=== PATIENT | male | born 1965 | race Caucasian/White ===

== ENCOUNTER 2019-10-24 17:26 | Inpatient (IN) | payer OTHER ==
[2019-10-24] VITALS (123 sets, daily range): BP systolic 95–119; BP diastolic 67–76; PULSE 79–103; TEMP 99.8–100.8; O2SAT 92–98
[~2019-10-24] VITALS: Ht 167.6 cm; Wt 76.2 kg
[~2019-10-24 17:26] MED LIST: IBU600 MG PO; LEVAQUIN 750MG750 M1 PO; MOBIC15 MG PO; TRICOR 48MG48 MG PO
[2019-10-24] MEDS ORDERED: PRILOTC PO (17:34)
[2019-10-24] MEDS ORDERED: ZESTRIL 10MG10 MG PO (17:34)
[2019-10-24 18:23] LABS: INR 1.1 (0.8-3.0); PROTHROMBIN TIME 13.3 SECONDS (9.7-12.8)
--- NOTE | 2019-10-24 22:35 | NUR ---
Report recieved from ARASH Lynne in PACU at 2040, patient arrived in ICU via bed at 2052. Patient was alert and oriented and had no complaints of pain. See post-op vital flowsheet. It was reported that patient received 2900ml fluids in OR, see eMAR for fluid orders at this time-wrist IV infusing well, R)IJ triple lumen central line flushes well, dressing CDI. Abdominal incisions well approximated-glue to incision at umbilicus and LLQ, dressing and ENE drain CDI and compressed at RLW. Hernandez in place and draining clear, yellow urine. Patient does continue to have temperature at 100 degrees F. Patient arrived to ICU on 2L/NC, decreased to 1L/NC at 2200. ENE drain also emptied at 2200 and recompressed. Patient talked with daughter and has cell phone at side of bed. Both and daughter's phone numbers on chart at this time. Patient tolerating ice chips, denies nausea. Pleasant and cooperative and uses call light appropriately.
[2019-10-25] VITALS (703 sets, daily range): BP systolic 109–153; BP diastolic 75–99; PULSE 79–95; TEMP 99.6–101.4; O2SAT 88–99
--- NOTE | 2019-10-25 02:30 | NUR ---
Mike Minor from the [facility] called to confirm information becuase patient's daughter and are requesting leave for the daughter. . Call back number [phone] for any updates, added information or questions.
[2019-10-25 05:48] LABS: BASO % 0.2 % (0.0-2.0); EOS # 0.1 (0.0-0.7); EOS % 0.5 % (0-4.0); GRAN # 11.5 (1.4-6.5); GRAN % 87.3 % (42.2-75.2); HEMOGLOBIN 12.9 g/dl (13.5-18.0); LYMPH # 0.6 (1.2-3.4); LYMPH % 4.5 % (20.0-51.0); MEAN CELL VOLUME 81 fl (80.0-100.0); MEAN CORPUSCULAR HEMOGLOBIN 27 pg (27.0-31.0); MEAN CORPUSCULAR HGB CONC 33 g/dl (33.0-37.0); MONO % 7.2 % (1.7-9.3); PLATELET COUNT 205 K/mm3 (130-400); RED BLOOD COUNT 4.83 M/mm3 (4.20-5.60)
[2019-10-25 05:56] LABS: INR 1.3 (0.8-3.0); PROTHROMBIN TIME 15.3 SECONDS (9.7-12.8)
[2019-10-25 06:09] LABS: ALBUMIN 3.2 gm/dL (3.5-5.0); BILIRUBIN,TOTAL 1.1 mg/dL (0.0-1.0); CALCIUM 8.5 mg/dL (8.4-10.2); CREATININE, serum 0.73 (0.66-1.25); POTASSIUM 4.1 mmol/L (3.4-5.0); TOTAL PROTEIN 5.6 gm/dL (6.4-8.2)
--- NOTE | 2019-10-25 08:00 | NUR ---
Shift assessment complete at this time. Plan of care reviewed at bedside with patient. Additional time taken to address any other needs or concerns. Pt reports mild abdominal pain at 3/10 severity near incision sites and denies need for pain intervention at this time. Vitals stable. Bed in low position, call light within reach, will continue to monitor.
--- NOTE | 2019-10-25 12:00 | NUR ---
Shift reassessment complete at this time. No changes from previous assessment noted. Vitals stable at this time. Pt denies pain or any other discomforts at this time. Bed in low position, call light within reach, will continue to monitor.
--- NOTE | 2019-10-25 13:21 | NUR ---
Patient reports that he would be returning to [place] with his Ayla . Patient shares that he using a walker and cane. Patient indicated that he has tranportation. Patient reports that he has two primary care Dr. Romo at the [facility] and Dr. King on [place] at the . Patient denies having a DPOA. Patient denies having any additional concerns prior to DC> Nothing Follows.
--- NOTE | 2019-10-25 16:00 | NUR ---
Shift reassessment complete at this time. No changes from previous assessments noted. Vitals stable at this time. Pt reports mild pain at 2-3/10 severity and declines need for intervention at this time. Bed in low position, call light within reach, will continue to monitor.
--- NOTE | 2019-10-25 18:11 | NUR ---
PT ARRIVED TO UNIT @ 1745. AOX4. STATES DULL PAIN TO RLQ ABD. DENIES N/V. STATES HAD A LARGE PASTY BM UPON ARRIVAL TO UNIT. THIS NURSE DID NOT VISUALIZE. ENE DRAIN NOTED TO MID LOWER ABD WITH SOILED DRESING. C/D/I SITES TO LEFT LATERAL AND ABOVE UMBILICUS SURGICAL SITE WITH DERMABOND. IVF CONTINUED ORDERED. CLEAR LIQ TRAY ARRIVED TO ROOM @ 1810.
--- NOTE | 2019-10-25 20:00 | NUR ---
Received report from ARASH Carlson. Pt is currently up and in the bathroom. Pt ambulated to the bathroom stand by assist. Pt stated that he would call out when he was done. Pt has his cord within reach
--- NOTE | 2019-10-25 22:25 | NUR ---
Pt called out requesting Tylenol for pain. Pt was given 2 Tylenol at this time. Pt has his call light within reach and his bed is in lowest position.
[2019-10-26 00:13] VITALS: TEMP 99.5
--- NOTE | 2019-10-26 01:24 | NUR ---
Pt currently sleeping in bed at this time. New fluids were hung at this time.
[2019-10-26 03:28] VITALS: BP 148/98; PULSE 82; TEMP 99.2
[2019-10-26 07:26] LABS: ALBUMIN 3.6 gm/dL (3.5-5.0); BILIRUBIN,TOTAL 1.2 mg/dL (0.0-1.0); CALCIUM 8.6 mg/dL (8.4-10.2); CREATININE, serum 0.74 (0.66-1.25); POTASSIUM 3.7 mmol/L (3.4-5.0); TOTAL PROTEIN 6.3 gm/dL (6.4-8.2)
[2019-10-26 07:27] LABS: BASO # 0.1 (0.0-0.2); BASO % 0.4 % (0.0-2.0); EOS # 0.1 (0.0-0.7); EOS % 0.8 % (0-4.0); GRAN # 9.7 (1.4-6.5); GRAN % 80.8 % (42.2-75.2); HEMATOCRIT 41.5 % (42.0-52.0); HEMOGLOBIN 13.6 g/dl (13.5-18.0); INR 1.1 (0.8-3.0); LYMPH # 1.1 (1.2-3.4); MEAN CELL VOLUME 81 fl (80.0-100.0); MEAN CORPUSCULAR HEMOGLOBIN 27 pg (27.0-31.0); MEAN CORPUSCULAR HGB CONC 33 g/dl (33.0-37.0); MEAN PLATELET VOLUME 10.4 fl (7.4-10.4); MONO % 8.4 % (1.7-9.3); PLATELET COUNT 227 K/mm3 (130-400); PROTHROMBIN TIME 12.6 SECONDS (9.7-12.8); RED BLOOD COUNT 5.11 M/mm3 (4.20-5.60); REDCELL DISTRIBUTION WIDTH-CV 14.6 % (11.5-14.5)
--- NOTE | 2019-10-26 07:29 | NUR ---
Reported off to ARASH Gould. Pt is currently lying in bed at this time. Pt has no complaints at this time. Pt did request water and pt pitcher was refilled at this time. Pt has his call light within reach and his bed is in lowest position.
[2019-10-26 08:22] VITALS: BP 146/97; PULSE 91; TEMP 99.1
--- NOTE | 2019-10-26 08:30 | NUR ---
Patient independent in room. He had a bowel movment this am, He is hopeful to progress diet. Reports passing flatus, denies nausea. ENE drain with minimal output. Ivf & antibioitcs as ordered.
[2019-10-26 11:39] VITALS: BP 142/96; PULSE 88; TEMP 99.9
--- NOTE | 2019-10-26 14:29 | NUR ---
Patient resting, rounded. Orders obtained from [facility]. IV to Int. Home Zestril resumed. He continues to ambulate halls independently. He is tolerating low fiber diet without nausea.
[2019-10-26 15:44] VITALS: BP 124/98; PULSE 86; TEMP 98.3
--- NOTE | 2019-10-26 16:00 | NUR ---
Patient headache improved after tyelnol. Iv antibioitcs per orders.
--- NOTE | 2019-10-26 20:30 | NUR ---
Initial shift assessment done- states would like some Tylenol,just "sore" abd area--Delfin to bulb sx with serosanguinous drainage- lap sites intact, active bowel sounds, temp 99.8-using IS, Has R/IJ TLC- good blood return- on IV antibiotics--was hoping to go home tomorrow
[2019-10-26 21:02] VITALS: BP 137/91; PULSE 86; TEMP 99.8
[2019-10-27 00:10] VITALS: BP 120/84; PULSE 76; TEMP 99.6
[2019-10-27 03:47] VITALS: BP 143/88; PULSE 85; TEMP 98.6
[2019-10-27 05:26] LABS: BASO # 0.1 (0.0-0.2); BASO % 0.4 % (0.0-2.0); EOS # 0.3 (0.0-0.7); EOS % 2.4 % (0-4.0); GRAN # 10.8 (1.4-6.5); GRAN % 77.1 % (42.2-75.2); HEMATOCRIT 42.7 % (42.0-52.0); HEMOGLOBIN 14.3 g/dl (13.5-18.0); LYMPH # 1.4 (1.2-3.4); LYMPH % 9.8 % (20.0-51.0); MEAN CELL VOLUME 82 fl (80.0-100.0); MEAN CORPUSCULAR HEMOGLOBIN 27 pg (27.0-31.0); MEAN CORPUSCULAR HGB CONC 34 g/dl (33.0-37.0); MEAN PLATELET VOLUME 10.1 fl (7.4-10.4); MONO # 1.4 (0.1-0.6); MONO % 9.7 % (1.7-9.3); PLATELET COUNT 272 K/mm3 (130-400); RED BLOOD COUNT 5.24 M/mm3 (4.20-5.60); REDCELL DISTRIBUTION WIDTH-CV 14.6 % (11.5-14.5)
[2019-10-27 05:37] LABS: ALBUMIN 3.9 gm/dL (3.5-5.0); CALCIUM 8.9 mg/dL (8.4-10.2); CREATININE, serum 0.72 (0.66-1.25); POTASSIUM 3.6 mmol/L (3.4-5.0); TOTAL PROTEIN 6.8 gm/dL (6.4-8.2)
[2019-10-27 07:38] VITALS: BP 137/95; PULSE 88; TEMP 99.2
--- NOTE | 2019-10-27 07:41 | NUR ---
Quiet night- requesting Tylenol for pain only- voiding well, highest temp tonight 99.8, on scant out of ENE during the night
--- NOTE | 2019-10-27 08:00 | NUR ---
PATIENT SITTING UP RESTING IN BED. PATIENT IS A&OX4. TACHYCARDIA NOTED, VSS. BOWEL SOUNDS ACTIVE ALL FOUR QUADRANTS. PATIENT TOLERATING DIET WITHOUT ANY COMPLAINTS OF N/V. ABDOMINAL LAP SITES X3 DONITA WITH EDGES WELL APPROXIMATED. ENE DRAIN TO BULB SUCTION WITH SMALL AMOUNTS OF BLOODY DRAINAGE PRESENT IN ENE BULB. SMALL AMOUNTS OF OLD BLOODY DRAINAGE PRESENT ON ENE DRAIN SITE DRESSING. PATIENT PASSING FLATUS. PATIENT STATES THAT HE HAS A HEADACHE THIS MORNING, BUT OTHERWISE DENIES PAIN. POSITIVE PEDAL PULSES EQUAL BILATERALLY. CENTRAL LINE TO RIGHT IJ. DRAINAGE PRESENT ON CENTRAL LINE DRESSING. CALL LIGHT WITHIN REACH. PATIENT DENIES ANY OTHER NEEDS AT THIS TIME.
--- NOTE | 2019-10-27 11:25 | NUR ---
First visit from the senior contracts manager. No needs right now.
[2019-10-27 11:50] VITALS: BP 152/103; PULSE 97; TEMP 98.9
[2019-10-27 16:05] VITALS: BP 134/95; PULSE 86; TEMP 98.6
--- NOTE | 2019-10-27 18:54 | NUR ---
REPORT GIVEN TO ARASH TRAN.
[2019-10-27 20:30] VITALS: BP 139/98; PULSE 88; TEMP 100.2
--- NOTE | 2019-10-27 20:30 | NUR ---
Initial shift assessment done- temp 100.2-other vitals stable, Tylenol given for temp and slight SKINNER/neck ache 08/04,, Using IS, abd soft w/active bowel sounds, + flatus. ENE w/scant serosanguinous drainage. Dressing coming off R/IJ TLC-- dressing changed at this time
[2019-10-28 00:46] VITALS: BP 136/95; PULSE 80; TEMP 98.9
[2019-10-28 04:30] VITALS: BP 133/87; PULSE 86; TEMP 99
--- NOTE | 2019-10-28 05:43 | NUR ---
Quiet night- only had a temp at the beginning of the shift 100.2,, did have Tylenol just once this shift. States did get some sleep last night-
[2019-10-28 07:39] LABS: BASO # 0.1 (0.0-0.2); BASO % 0.5 % (0.0-2.0); EOS # 0.3 (0.0-0.7); EOS % 2.5 % (0-4.0); GRAN # 9.3 (1.4-6.5); HEMATOCRIT 44.6 % (42.0-52.0); HEMOGLOBIN 14.9 g/dl (13.5-18.0); LYMPH # 1.3 (1.2-3.4); LYMPH % 10.2 % (20.0-51.0); MEAN CELL VOLUME 80 fl (80.0-100.0); MEAN CORPUSCULAR HEMOGLOBIN 27 pg (27.0-31.0); MEAN CORPUSCULAR HGB CONC 33 g/dl (33.0-37.0); MEAN PLATELET VOLUME 9.8 fl (7.4-10.4); MONO # 1.5 (0.1-0.6); MONO % 11.5 % (1.7-9.3); PLATELET COUNT 323 K/mm3 (130-400); RED BLOOD COUNT 5.56 M/mm3 (4.20-5.60); REDCELL DISTRIBUTION WIDTH-CV 14.4 % (11.5-14.5)
[2019-10-28 07:42] VITALS: BP 148/97; PULSE 93; TEMP 98.4
[2019-10-28 07:45] LABS: CALCIUM 8.9 mg/dL (8.4-10.2); CREATININE, serum 0.66 (0.66-1.25); POTASSIUM 3.6 mmol/L (3.4-5.0)
--- NOTE | 2019-10-28 09:51 | NUR ---
Pt sitting by window upon entry, no C/O pain at this time, expresses desire to return home. Shift assessments complete, left Pt call light in reach.
[2019-10-28 11:05] VITALS: BP 127/97; PULSE 94; TEMP 98.5
[2019-10-28 15:28] VITALS: BP 137/97; PULSE 87; TEMP 99.3
[2019-10-28] MEDS ORDERED: AMOXICILLIN 8751 TAB PO (16:05)
--- NOTE | 2019-10-28 16:14 | NUR ---
Removed ENE drain, sutures cut and removed drain pulled without issues. Removed IJ, sutures cut and IJ pulled, Pt tolerated both procedures well.
--- NOTE | 2019-10-28 18:31 | NUR ---
Pt discharged to home, discussed discharge packet with Pt, answered all questions, escorted to entrance, left with spouse via private transportation.
== END 2019-10-28 18:33 | disposition home or self-care (01) | DRG 853 ==
LOC: ICU 17:26 → JCC 17:26
PROVIDERS: Physician Assistant; Surgery; ADMIT Internal Medicine
PROC: 0DTJ4ZZ Resection of Appendix, Percutaneous Endoscopic Approach (ICD-10-PCS; principal; 2019-10-24 19:00)
PROC: 05HM33Z Insertion of Infusion Device into Right Internal Jugular Vein, Percutaneous Approach (ICD-10-PCS; 2019-10-24 19:00)
DX: A41.89 Other specified sepsis (principal); K35.32 Acute appendicitis with perforation, localized peritonitis, and gangrene, without abscess; K56.7 Ileus, unspecified; R65.20 Severe sepsis without septic shock; I95.9 Hypotension, unspecified; I10 Essential (primary) hypertension; K21.9 Gastro-esophageal reflux disease without esophagitis; Z96.643 Presence of artificial hip joint, bilateral; Z87.01 Personal history of pneumonia (recurrent)
CPT/HCPCS: 99231-AI; 99232-AI; 99233-AI; 99239; A4314; A9284; C9113; J1650; J1720; J2270; J2370; J2543; J2704; J3010; J7030; J7050; J7120